=== PATIENT | female | born 1940 | race Caucasian/White ===

== ENCOUNTER 2021-04-19 09:32 | Outpatient (CLI) | payer MEDICARE, BC | END 2021-04-19 09:33 | disposition home or self-care (01) | LOC: CSHMAMMO 09:32 | PROVIDERS: ATTEND Family Medicine | DX: M81.0 Age-related osteoporosis without current pathological fracture (principal); M85.88 Other specified disorders of bone density and structure, other site | CPT/HCPCS: 77080 ==

== ENCOUNTER 2023-08-10 09:44 | Outpatient (CLI) | payer MEDICARE, BC | END 2023-08-10 09:45 | disposition home or self-care (01) | LOC: CSHMAMMO 09:44 | PROVIDERS: ATTEND Family Medicine | DX: M81.0 Age-related osteoporosis without current pathological fracture (principal); M85.88 Other specified disorders of bone density and structure, other site | CPT/HCPCS: 77080 ==

== ENCOUNTER 2023-10-18 09:41 | Outpatient (CLI) | payer MEDICARE, BC | END 2023-10-18 09:42 | disposition home or self-care (01) | LOC: CSHCP 09:41 | PROVIDERS: ATTEND Internal Medicine Critical Care Medicine | DX: R06.02 Shortness of breath (principal); R09.02 Hypoxemia | CPT/HCPCS: 94060; 94618; 94664; 94726; 94729 ==